=== PATIENT | female | born 1985 | race Caucasian/White ===

== ENCOUNTER 2023-07-30 17:54 | Emergency (ER) | payer OTHER, SELFPAY ==
[2023-07-30 18:00] VITALS: BP 129/76
--- NOTE | 2023-07-30 18:52 | ED.GENMED ---
History of Present Illness
General
Chief Complaint: Urinary Symptoms
Source: patient
Exam Limitations: none
Time Seen by Provider: 07/30/23 18:40
Travel History
Have you had any contact with someone who has COVID-19?: No
Do you have any symptoms of coronavirus? Fever > 100 degrees, chills, cough, shortness of breath, sore throat, loss of taste or smell, muscle aches, or headache?: No
History of Present Illness
History of Present Illness:
This is a 38 year old female that comes in with c/o suprapubic discomfort. States that she urinates but feels that she is not emptying her bladder. States that this started today. States that she did have diarrhea once today and a headache. Denies
any fever, chills, chest pain, SOB, nausea, vomiting, dizziness, urinary burning.
Past History
Past History
ED Past Medical History: Fibromyalgia, GERD, Psychiatric (bipolar, anxiety, Panic attacks, ADHD, OCD) and Other (DAVIS, back pain, UTI, Migraines, palpitations, Lyme disease, Diverticulosis)
ED Past Surgical History: Cholecystectomy (2013), Gynecological (IUD) and Other (wisdom teeth extraction)
Social History
Tobacco: Former smoker
Alcohol: None
Drug: Former user
Personal:
Living: with family
Employment: Not employed
Family History
Family History: Other (Noncontributory)
Review of Systems
Review of Systems
All Other Systems: ROS reviewed and negative except as documented in HPI and ROS
Constitutional: Reports no symptoms; Denies fever or chills
EENT: Reports no symptoms
Respiratory: Reports no symptoms; Denies cough or trouble breathing
Cardiac: Reports no symptoms; Denies chest pain
ABD/GI: Reports abdominal pain (Lower abd pain) and diarrhea; Denies nausea or vomiting
: Reports other (Feels she is not emptying her bladder); Denies dysuria, frequency or urgency
Musculoskeletal: Reports no symptoms
Skin: Reports no symptoms
Neurological: Reports headache; Denies dizzy
Psychiatric: Reports no symptoms
Phy Exam
General Physical Exam
General Presentation: well appearing and no apparent distress
General age: appears stated age
General Skin: warm and dry
General Habitus: normal
General Mental: alert
General Hydration: appears well hydrated
ENT Exam
ENT Exam: TM's normal, pharynx normal and neck supple
Eye Exam
Eye Exam: EOMI
Cardiovascular Exam
Cardiovascular Exam: regular rate/rhythm, no edema, no murmur and normal peripheral pulses
Pulmonary Exam
Pulmonary Exam: lungs clear, no respiratory distress, no rales, chest non tender, no crackles, no rhonchi, no wheezing and no cough
Gastrointestinal Exam
Gastrointestinal Exam: normal bowel sounds, non tender, soft, no organomegaly, no pulsatile mass, non distended and other (obese)
Musculoskeletal Exam
Musculoskeletal Exam: full ROM and no edema
Skin Exam
Skin Exam: normal color, warm/dry, no rash and no petechia
Psychiatric Exam
Psychiatric Exam: normal mood/affect
Course
Orders/Labs/Results
Orders:
Orders
07/30/23 18:52
Bladder Scan- Treatment ONCE
07/30/23 19:00
Urinalysis Reflex To Culture Urgent
Date Specimen was Collected: 07/30/23
Time Specimen was Collected: 18:56
Urine Microscopic Reflex Cult Urgent
Urine Culture Urgent
VITOR Source: U
Specimen Description:
Date Specimen was Collected: 07/30/23
Time Specimen was Collected: 18:56
Abnormal Lab Results
07/30/23
19:00
Leukocyte Esterase Rfl Trace A
(Negative)
Urine Bacteria (Reflex) Many A
(Negative)
Urine Negative for infection. Culture is pending.
Vital Signs
Initial and Last Documented VS:
Initial Vital Signs
Temp Pulse Resp BP Pulse Ox
98.3 F 82 16 129/76 98
07/30/23 18:00 07/30/23 18:00 07/30/23 18:00 07/30/23 18:00 07/30/23 18:00
Last Documented Vital Signs
Temp Pulse Resp BP Pulse Ox
98.3 F 82 16 129/76 98
07/30/23 18:00 07/30/23 18:00 07/30/23 18:00 07/30/23 18:00 07/30/23 18:00
MDM/Problems Addressed
Differential Diagnosis Includes:
UTI, Urinary retention
MDM/Problems Addressed:
This is a 38 year old female that comes in with c/o feeling like she is not emptying her bladder. States that she has lower suprapubic pain and that this started today.
Will check urine and bladder scan after urination.
Back into see patient. Explained that her urine is negative for infection and she is not retaining a significant amount. Patient can follow up with the Urologist for further evaluation. Patient to return with any concerns.
Chronic conditions affecting care:
UTI
Chronic conditions affecting care: Psychiatric illness
Acute Exacerbation and/or Progression of Chronic Illness:
UTI
Acute Exacerbation and/or Progression of Chronic Illness: Psychiatric illness
*Pulse Oximetry
Patient hypoxic: no
*EKG
Interpreted by ED Provider?: NA
Rate: EKG- N/A
*Executive Vp Interpretation
Rate: Executive Vp- N/A
*Critical Care Note
Total Time (30-74mins, 75-104mins- exclusive of procedures): Not Applicable
ED Attending Note
-
Portions of this chart may have been created with voice recognition software.� Occasional wrong word or��sound alike� substitutions may have occurred due to the inherent limitations of voice recognition software.
Discharge Plan
Departure
Patient Disposition: Home (Routine Discharge)
Date of Disposition: 07/30/23
Time of Disposition: 20:05
Patient with high blood pressure during this ER visit?: No
Condition: Good
Covid-19: Not Applicable
Discharge Problem:
Urinary problem
Prescriptions:
No Action
clonidine HCl 0.1 MG tablet
0.1 mg PO BID
lamotrigine [Lamictal] 200 MG tablet
200 mg PO BID
risperidone [Risperdal] 4 MG tablet
4 mg PO HS
divalproex 500 MG tablet extended release 24 hr
500 mg PO BID
docusate sodium 100 MG capsule
100 mg PO BID
risperidone 1 MG tablet
1 mg PO DAILY
omeprazole 20 MG capsule,delayed release(DR/EC)
20 mg PO DAILY Qty: 30 0RF
hydrocortisone acetate 25 MG suppository
25 mg [place] HS Qty: 7 0RF
Activity Restrictions/Additional Instructions:
As discussed, your urine is negative for infection. There is a culture pending and if this would come back positive for infection you will be called and started on an antibiotic. You have some urine still left in the bladder but not a lot. This can
be further evaluated by the Urologist. Please increase your water intake to 8-8oz glasses daily. IF YOU HAVE ANY OTHER CONCERNS PLEASE RETURN TO THE EMERGENCY ROOM.
Interventions
Interventions:
*Risk Screen - Suicide Last Done: 07/30/23 18:01
*General Assessment Last Done: 07/30/23 18:00
*Neglect/Abuse Screening Last Done: 07/30/23 18:00
ED- Fall Risk Assessment Last Done: 07/30/23 19:51
*ED COVID-19 Vaccine History Last Done: 07/30/23 19:51
*Nursing Disposition Last Done: 07/30/23 20:47
ED-Female Genitourinary Assessment Last Done: 07/30/23 19:51
Discharge Date and Time
Discharge Date/Time: 07/30/23 20:47
Print Language: MOHAWK
[2023-07-30 19:26] LABS: Urine Albumin Negative (Neg - Trace); Urine Bilirubin Negative (Negative); Urine Character Clear (Clear); Urine Color Yellow; Urine Glucose Negative (Negative); Urine Ketone Negative (Negative); Urine Leukocyte Trace (Negative); Urine Nitrite Negative (Negative); Urine Occult Blood Negative (Negative); Urine Specific Gravity 1.015 (<1.030); Urine Urobilinogen Negative (Neg - 1+)
[2023-07-30 19:33] LABS: Urine Squamous Cell 16-20 /LPF (Few)
[2023-07-30 19:34] LABS: Urine Bacteria Many (Negative); Urine Mucus Few; Urine Red Blood Cell 0-2 /HPF (0-2); Urine White Cell 0-2 /HPF (0-5)
== END 2023-07-30 20:47 | disposition home or self-care (01) ==
LOC: EMR 17:54
PROVIDERS: Clinical Nurse Specialist Family Health; EMERGENCY PHYSICIAN Emergency Medicine; FAMILY PHYSICIAN Family Medicine
DX: R39.14 Feeling of incomplete bladder emptying (principal); R10.2 Pelvic and perineal pain; R19.7 Diarrhea, unspecified; R51.9 Headache, unspecified
CPT/HCPCS: 99283; 51798; 81003; 81015; 87086

== ENCOUNTER 2023-09-29 14:15 | Emergency (ER) | payer OTHER, SELFPAY ==
[2023-09-29 14:24] VITALS: BP 137/93
[2023-09-29 14:39] VITALS: BMI 50.2
[2023-09-29 14:57] LABS: % Basophils 0.5 % (0-2); % Eosinophils 2.9 % (0-6); % Immature Granulocytes 0.7 % (0-0.5); % Lymphocytes 29.2 % (20.5-51.1); % Monocytes 8.5 % (1.7-9.3); % Neutrophils 58.2 % (42.2-75.2); Absolute Basophils 0.1 10^3/uL (0-0.2); Absolute Eosinophils 0.3 10^3/uL (0-0.7); Absolute Immature Granulocytes 0.1 10^3/uL (0-0.05); Absolute Lymphocytes 3.1 10^3/uL (1.2-3.4); Absolute Monocytes 0.9 10^3/uL (0.1-0.6); Absolute Neutrophils 6.1 10^3/uL (1.4-6.5); Hematocrit 37.4 % (37.0-47.0); Hemoglobin 12.9 g/dL (12.0-16.0); Mean Corp Hgb Conc. 34.5 g/dL (33.0-37.0); Mean Platelet Volume 9.4 fL (7.4-10.4); Nucleated Red Blood Cells % 0 %; Platelet Count 284 10^3/uL (130-400); Red Cell Dist. Width 12.3 % (11.5-14.5); White Blood Cell Count 10.5 10^3/uL (4.8-10.8)
--- NOTE | 2023-09-29 15:08 | ED.GENMED ---
History of Present Illness
General
Chief Complaint: Abdominal Pain
Source: patient, records and spouse
Exam Limitations: none
Time Seen by Provider: 09/29/23 14:56
Nursing documentation reviewed up to this point in time: agreed with
Travel History
Have you had any contact with someone who has COVID-19?: No
Do you have any symptoms of coronavirus? Fever > 100 degrees, chills, cough, shortness of breath, sore throat, loss of taste or smell, muscle aches, or headache?: No
History of Present Illness
History of Present Illness:
Patient is a 38-year-old female presents to the emergency department complaining of pain behind her umbilicus that started at 11:00 last night. Patient took some Tylenol and it helped. Patient states she has a history of diverticular disease.
Patient's had a cholecystectomy. Patient feels nauseous without vomiting or diarrhea. Patient denies any symptoms. Patient's last period was 1 month ago. Patient states the pain got worse with eating. Patient denies any chest pain or
shortness of breath. Patient denies any fever or chills.
Past History
Past History
ED Past Medical History: Fibromyalgia, GERD, Psychiatric (bipolar, anxiety, Panic attacks, ADHD, OCD) and Other (DAVIS, back pain, UTI, Migraines, palpitations, Lyme disease, Diverticulosis)
ED Past Surgical History: Cholecystectomy (2013), Gynecological (IUD) and Other (wisdom teeth extraction)
Social History
Tobacco: Former smoker
Alcohol: None
Drug: Former user
Personal:
Living: with family
Employment: Not employed
Family History
Family History: Other (Noncontributory)
Review of Systems
Review of Systems
All Other Systems: ROS reviewed and negative except as documented in HPI and ROS
Constitutional: Reports no symptoms
EENT: Reports no symptoms
Respiratory: Reports no symptoms
Cardiac: Reports no symptoms
ABD/GI: Reports abdominal pain and nausea; Denies vomiting, diarrhea, constipated, bloody stools, black stools or anorexia
: Reports no symptoms
Musculoskeletal: Reports no symptoms
Skin: Reports no symptoms
Neurological: Reports no symptoms
Hematologic/Lymphatic: Reports no symptoms
Psychiatric: Reports no symptoms
Phy Exam
Physical Exam
Physical Exam:
Physical Exam
General: No apparent distress, alert and appropriate, obese, well hydrated
HENT: Normocephalic, supple with no lymphadenopathy, no thyromegaly
Eyes: Clear sclera, conjuctiva without injection
Heart: Regular rhythm and rate. No S3, S4. No murmur.
Lungs: No respiratory distress, no stridor, lung sounds clear and equal bilaterally
Abdomen: Soft, mild periumbilical tenderness without guarding or rebound, no organomegaly, no CVA tenderness, BS good
Neuro: Alert and oriented x 3, CN II - XII intact, no motor focality, no cerebellar dysfunction
Skin: no rash
Psychiatric: well kept. interactive and cooperative
Extremities: No edema, cyanosis, tenderness
Course
Orders/Labs/Results
Orders:
Orders
09/29/23 14:48
Complete Blood Count/With Diff Urgent
Comprehensive Metabolic Panel Urgent
HCG, Serum Qualitative Screen Urgent
Lipase Urgent
09/29/23 14:55
Add On- LAB Urgent
Tests Added?: HCG Qualitative
09/29/23 15:07
Add On- LAB Urgent
Tests Added?: serum qualitative hcg
Ondansetron Injectable [Zofran] 4 mg IV NOW STA
09/29/23 15:09
Pantoprazole [Protonix IV] 80 mg IV NOW STA
Sucralfate [Carafate] 1 gram PO NOW STA
09/29/23 15:26
Urinalysis Reflex To Culture Urgent
Date Specimen was Collected: 09/29/23
Time Specimen was Collected: 15:25
Urine Microscopic Reflex Cult Urgent
Urine Culture Urgent
VITOR Source: U
Specimen Description:
Date Specimen was Collected: 09/29/23
Time Specimen was Collected: 15:25
09/29/23 16:29
CT Abd/Pel (IV only)-DH only Urgent
Comment:
Reason For Exam: periumbilical tender
Abnormal Lab Results
09/29/23 09/29/23
14:48 15:26
Abs Immat Gran (auto) 0.1 H 10^3/uL
(0-0.05)
Absolute Monos (auto) 0.9 H 10^3/uL
(0.1-0.6)
Immature Gran % 0.7 H %
(0-0.5)
Glucose 115 H mg/dl
(70-99)
Total Protein 6.0 L g/dl
(6.3-8.2)
Urine Ketones Trace A
(Negative)
Leukocyte Esterase Rfl 1+ A
(Negative)
Urine Bacteria (Reflex) Moderate A
(Negative)
09/29/23 14:48
09/29/23 14:48
Vital Signs
Initial and Last Documented VS:
Initial Vital Signs
Temp Pulse Resp BP Pulse Ox
98.1 F 88 18 137/93 98
09/29/23 14:24 09/29/23 14:24 09/29/23 14:24 09/29/23 14:24 09/29/23 14:24
Last Documented Vital Signs
Temp Pulse Resp BP Pulse Ox
98.1 F 88 18 137/93 98
09/29/23 14:24 09/29/23 14:24 09/29/23 14:24 09/29/23 14:24 09/29/23 14:24
*Radiology
Radiology exam reviewed: radiology read reviewed (Unremarkable)
*Pulse Oximetry
Patient hypoxic: no
*EKG
Interpreted by ED Provider?: NA
*Site Reliability Engineer Interpretation
Rate: Site Reliability Engineer- N/A
*Critical Care Note
Total Time (30-74mins, 75-104mins- exclusive of procedures): Not Applicable
Update Note
Update Note:
Patient's symptoms seem to come with eating or more nausea and pain related. Will treat the patient for possible gastritis. Patient be discharged.
ED Attending Note
-
Portions of this chart may have been created with voice recognition software.� Occasional wrong word or��sound alike� substitutions may have occurred due to the inherent limitations of voice recognition software.
Discharge Plan
Departure
Patient Disposition: Home (Routine Discharge)
Date of Disposition: 09/29/23
Time of Disposition: 18:50
Patient with high blood pressure during this ER visit?: No
Condition: Good
Covid-19: Not Applicable
Discharge Problem:
Acute gastritis without hemorrhage, Nonspecific abdominal pain
Instructions: Gastritis (DC), Abdominal Pain
Prescriptions:
New
sucralfate [Carafate] 1 gram tablet
1 g PO QID Qty: 60 0RF
ondansetron 8 mg tablet,disintegrating
8 mg PO TID PRN (Reason: nausea and vomiting) Qty: 30 0RF
pantoprazole [Protonix] 40 mg tablet,delayed release (DR/EC)
40 mg PO BID Qty: 30 0RF
No Action
clonidine HCl 0.1 MG tablet
0.1 mg PO BID
lamotrigine [Lamictal] 200 MG tablet
200 mg PO BID
risperidone [Risperdal] 4 MG tablet
4 mg PO HS
divalproex 500 MG tablet extended release 24 hr
500 mg PO BID
docusate sodium 100 MG capsule
100 mg PO BID
risperidone 1 MG tablet
1 mg PO DAILY
omeprazole 20 MG capsule,delayed release(DR/EC)
20 mg PO DAILY Qty: 30 0RF
hydrocortisone acetate 25 MG suppository
25 mg [place] HS Qty: 7 0RF
Referrals:
Lyla Chavarria MD [Family Provider] - Follow up in 2-3 days
Interventions
Interventions:
*Risk Screen - Suicide Last Done: 09/29/23 14:39
*General Assessment Last Done: 09/29/23 14:40
*Neglect/Abuse Screening Last Done: 09/29/23 14:39
ED- Fall Risk Assessment Last Done: 09/29/23 14:39
*ED COVID-19 Vaccine History Last Done: 09/29/23 14:39
QM-Yrauxi-Ngcveojrhw Assessment Last Done: 09/29/23 14:40
Discharge Date and Time
Print Language: SENEGALESE
[2023-09-29 15:13] LABS: ALT (SGPT) 20 U/L (0-35); AST (SGOT) 19 U/L (14-36); Albumin 3.7 g/dl (3.5-5.0); Alkaline Phosphatase 79 U/L (38-126); Blood Urea Nitrogen 14 mg/dl (7-17); Calcium 9.5 mg/dl (8.4-10.2); Carbon Dioxide 28 mmol/L (22-30); Chloride 105 mmol/L (98-107); Estimated Creatinine Clearance > 125 ml/min; Glucose 115 mg/dl (70-99); Lipase 116 U/L (23-300); Potassium 3.8 mmol/L (3.5-5.1); Sodium 141 mmol/L (135-145); Total Bilirubin 0.3 mg/dl (0.2-1.3); eGFR > 60.00
[2023-09-29] MEDS: CARAFATE 1 GRAM PO (15:18)
[2023-09-29] MEDS: PROTONIX IV 80 MG IV (15:19)
[2023-09-29] MEDS: ZOFRAN 4 MG IV (15:19)
[2023-09-29 15:32] LABS: Urine Albumin Negative (Neg - Trace); Urine Bilirubin Negative (Negative); Urine Character Clear (Clear); Urine Color Yellow; Urine Glucose Negative (Negative); Urine Ketone Trace (Negative); Urine Leukocyte 1+ (Negative); Urine Nitrite Negative (Negative); Urine Occult Blood Negative (Negative); Urine Urobilinogen Negative (Neg - 1+); Urine pH 6.5 (5.0-9.0)
[2023-09-29 15:42] LABS: Urine Bacteria Moderate (Negative); Urine Red Blood Cell 0-2 /HPF (0-2); Urine Squamous Cell >30 /LPF (Few)
[2023-09-29 16:05] LABS: HCG, Serum Qualitative Screen Negative
[2023-09-29 19:15] VITALS: BP 117/75
== END 2023-09-29 19:17 | disposition home or self-care (01) ==
LOC: EMR 14:15
PROVIDERS: EMERGENCY PHYSICIAN Emergency Medicine; FAMILY PHYSICIAN Internal Medicine
DX: K29.00 Acute gastritis without bleeding (principal); F31.9 Bipolar disorder, unspecified; F42.9 Obsessive-compulsive disorder, unspecified; K21.9 Gastro-esophageal reflux disease without esophagitis; M79.7 Fibromyalgia; Q43.8 Other specified congenital malformations of intestine; Z87.440 Personal history of urinary (tract) infections; Z87.891 Personal history of nicotine dependence; Z90.49 Acquired absence of other specified parts of digestive tract
CPT/HCPCS: 99284; 96374; 96375; 74177; 80053; 81003; 81015; 83690; 84703; 85025; 87086; Q9967

== ENCOUNTER 2024-05-26 15:26 | Emergency (ER) | payer OTHER, SELFPAY ==
[2024-05-26 15:32] VITALS: BP 135/109
--- NOTE | 2024-05-26 17:15 | ED.GENMED ---
History of Present Illness
General
Chief Complaint: Dental Problem
Source: patient
Exam Limitations: none
Time Seen by Provider: 05/26/24 17:04
History of Present Illness
History of Present Illness:
39-year-old female with history of bipolar disorder presents complaining of right-sided dental pain that radiates to her ear. Constant pain. She spoke with a dentist on the phone they cannot get her until tomorrow but they advised she come here to
have her ear looked at. No fevers no cough. No vomiting. No other complaints at this time
Past History
Past History
ED Past Medical History: Fibromyalgia, GERD, Psychiatric (bipolar, anxiety, Panic attacks, ADHD, OCD) and Other (DAVIS, back pain, UTI, Migraines, palpitations, Lyme disease, Diverticulosis)
ED Past Surgical History: Cholecystectomy (2013), Gynecological (IUD) and Other (wisdom teeth extraction)
Social History
Tobacco: Former smoker
Alcohol: None
Drug: Former user
Personal:
Living: with family
Employment: Not employed
Family History
Family History: Other (Noncontributory)
Phy Exam
Physical Exam
Physical Exam:
General: Well-appearing female no acute respiratory distress
HEENT: Normocephalic TMs normal mucosa moist neck is supple no trismus or drooling TMJs nontender slightly tender to the right upper teeth. Posterior pharynx is patent without any swelling or asymmetry
Extremities: No cyanosis
Course
Vital Signs
Initial and Last Documented VS:
Initial Vital Signs
Temp Pulse Resp BP Pulse Ox
98.1 F 93 20 135/109 97
05/26/24 15:32 05/26/24 15:32 05/26/24 15:32 05/26/24 15:32 05/26/24 15:32
Last Documented Vital Signs
Temp Pulse Resp BP Pulse Ox
98.1 F 93 16 135/109 97
05/26/24 15:32 05/26/24 15:32 05/26/24 16:47 05/26/24 15:32 05/26/24 15:32
MDM/Problems Addressed
Differential Diagnosis Includes:
Right sided dental pain. No signs of otitis. Question possible underlying infection versus cavity. Will cover with antibiotics. She is due to see the dentist tomorrow. No abscess to drain. No rash to suggest shingles
*Critical Care Note
Total Time (30-74mins, 75-104mins- exclusive of procedures): Not Applicable
ED Attending Note
-
Portions of this chart may have been created with voice recognition software.� Occasional wrong word or��sound alike� substitutions may have occurred due to the inherent limitations of voice recognition software.
Discharge Plan
Departure
Patient Disposition: Home (Routine Discharge)
Date of Disposition: 05/26/24
Time of Disposition: 17:16
Patient with high blood pressure during this ER visit?: No
Discharge Problem:
Pain, dental
Instructions: Dental Pain (DC)
Prescriptions:
New
clindamycin HCl 300 mg capsule
300 mg PO TID Qty: 21 0RF
No Action
clonidine HCl 0.1 MG tablet
0.1 mg PO BID
lamotrigine [Lamictal] 200 MG tablet
200 mg PO BID
risperidone [Risperdal] 4 MG tablet
4 mg PO HS
divalproex 500 MG tablet extended release 24 hr
500 mg PO BID
docusate sodium 100 MG capsule
100 mg PO BID
risperidone 1 MG tablet
1 mg PO DAILY
omeprazole 20 MG capsule,delayed release(DR/EC)
20 mg PO DAILY Qty: 30 0RF
hydrocortisone acetate 25 MG suppository
25 mg [place] HS Qty: 7 0RF
sucralfate [Carafate] 1 gram tablet
1 g PO QID Qty: 60 0RF
ondansetron 8 mg tablet,disintegrating
8 mg PO TID PRN (Reason: nausea and vomiting) Qty: 30 0RF
pantoprazole [Protonix] 40 mg tablet,delayed release (DR/EC)
40 mg PO BID Qty: 30 0RF
Activity Restrictions/Additional Instructions:
Take antibiotics as directed. Use Tylenol for pain. Follow-up with your dentist
Interventions
Interventions:
*Risk Screen - Suicide Last Done: 05/26/24 16:46
*General Assessment Last Done: 05/26/24 15:32
*Neglect/Abuse Screening Last Done: 05/26/24 16:46
ED- Fall Risk Assessment Last Done: 05/26/24 16:47
Discharge Date and Time
Print Language: ESTONIAN
== END 2024-05-26 17:29 | disposition home or self-care (01) ==
LOC: EMR 15:26
PROVIDERS: EMERGENCY PHYSICIAN Student in an Organized Health Care Education/Training Program; FAMILY PHYSICIAN Nurse Practitioner Family
DX: K08.89 Other specified disorders of teeth and supporting structures (principal); K21.9 Gastro-esophageal reflux disease without esophagitis; M79.7 Fibromyalgia; Z87.891 Personal history of nicotine dependence; Z90.49 Acquired absence of other specified parts of digestive tract
CPT/HCPCS: 99282

== ENCOUNTER 2024-10-30 21:10 | Emergency (ER) | payer OTHER, SELFPAY ==
[2024-10-30 21:12] VITALS: BP 154/117
--- NOTE | 2024-10-30 22:37 | ED.GENMED ---
History of Present Illness
General
Chief Complaint: Dental Problem
Source: patient and previous hospital records (ED visit May 2024 with complaints of right upper molar pain.)
Exam Limitations: none
Time Seen by Provider: 10/30/24 22:07
Nursing documentation reviewed up to this point in time: agreed with
History of Present Illness
History of Present Illness:
This is a 39-year-old obese woman with history of bipolar disorder, fibromyalgia, fatty liver disease who presents with 3-day history of right upper molar pain, slowly progressive over the past 2 to 3 days with development of swelling of the right
upper hard palate just adjacent to her right upper molars. She has not had a fever, no sore throat nor difficulty swallowing, no headache, no ear pain.
She had similar right upper molar dental pain noted during ED visit May 2024. At that time no focal swelling. Was placed on a course of clindamycin and patient followed up with the dentist and had a cavity repaired.
She states she follows regularly with dentist and undergoes dental cleaning every 3 months with last visit perhaps a month ago.
She has been taking Tylenol for pain, last dose was this afternoon as well as 1 dose of Tylenol yesterday.
Reports allergy to penicillin.
Denies risk of .
Past History
Past History
ED Past Medical History: Fibromyalgia, GERD, Psychiatric (bipolar, anxiety, Panic attacks, ADHD, OCD) and Other (DAVIS, back pain, UTI, Migraines, palpitations, Lyme disease, Diverticulosis)
ED Past Surgical History: Cholecystectomy (2013), Gynecological (IUD) and Other (wisdom teeth extraction)
Social History
Tobacco: Former smoker
Alcohol: None
Drug: Former user
Personal:
Living: with family
Employment: Not employed
Family History
Family History: Other (Noncontributory)
Phy Exam
Physical Exam
Physical Exam:
GENERAL: 39-year-old obese female appears her stated age, bright and alert, pleasant, easily communicative and in no acute distress. Borderline low-grade fever 99 �F noted.
EYE: pupils equal and reactive. anicteric
NECK: Supple, nontender, no meningismus, no significant adenopathy.
ENT: posterior pharynx is clear, oral mucosa is moist. TM clear b/l, nares patent. There is a soft fluctuant dental abscess located medial to right upper molar�tooth #3. Moderate local tenderness to palpation. Abscess is localized without
surrounding erythema. Mild tenderness to tooth #3. No overt dental carry. No evidence of gingivitis.
CARDIAC: Regular rate and rhythm. no murmur.
LUNGS: Clear breath sounds bilaterally, no acute respiratory distress, no wheezes/rales/rhonchi
ABDOMEN: Rotund, soft, nondistended, without focal tenderness
NEUROLOGICAL: Alert and oriented x3, no focal neuro deficits. Gait is lloyd and steady.
SKIN: Warm and dry, normal color, skin intact. No rash.
MUSCULOSKELETAL: No C/C/E. peripheral pulses are full and equal b/l. No palpable tenderness.
PSYCH: Normal and appropriate interaction.
Course
Orders/Labs/Results
Orders:
Orders
10/30/24 22:35
Clindamycin HCl [Cleocin] 300 mg PO NOW STA
Ibuprofen [Motrin] 600 mg PO NOW STA
Vital Signs
Initial and Last Documented VS:
Initial Vital Signs
Temp Pulse Resp BP Pulse Ox
98.8 F 98 16 154/117 96
10/30/24 21:12 10/30/24 21:12 10/30/24 21:12 10/30/24 21:12 10/30/24 21:12
Last Documented Vital Signs
Temp Pulse Resp BP Pulse Ox
98.8 F 98 16 154/117 96
10/30/24 21:12 10/30/24 21:12 10/30/24 21:12 10/30/24 21:12 10/30/24 22:42
Procedures
Incision/Drainage/Joint Aspiration
Medial aspect of tooth #3:
Anethesia: other (Topical [id number])
Preparation: other (Cleaned with normal saline)
Type of procedure: incise (#11 Blade utilized.)
Nature of site: abscess
Description of abscess: less than 3cm
How much fluid was obtained?: large amount (Moderate amount of purulent material expressed from dental abscess.)
Fluid description: purulent
Treatment: left open for drainage
Additional information:
Small incision and dental abscess with #11 blade. Abscess expressed with gentle pressure with suction catheter. Moderate amount of purulent material mixed with scant amount of blood.
Patient tolerated procedure well. No complications.
MDM/Problems Addressed
Differential Diagnosis Includes:
Several day history of right upper molar pain presents with focal dental abscess medial aspect of tooth #3. This abscess is fluctuant, amenable to I&D.
Will anesthetize locally with topical benzocaine and plan for focal incision and drainage.
Will initiate a course of clindamycin and will give ibuprofen for pain.
Overall well in appearance. No history of immunocompromise nor risk factors for such. No indication for laboratory studies nor imaging.
*Pulse Oximetry
SaO2: 96
Oxygen Mode of Delivery: Room air
Patient hypoxic: no
*Critical Care Note
Total Time (30-74mins, 75-104mins- exclusive of procedures): Not Applicable
Update Note
Update Note:
Dental abscess incised and drained.
Patient tolerated procedure well. No complications.
Will initiate clindamycin as above.
Recommend soft diet.
Warm salt water gargles.
Tylenol versus ibuprofen as needed for pain.
Prompt follow-up with dentist for recheck.
ED Attending Note
-
Portions of this chart may have been created with voice recognition software.� Occasional wrong word or��sound alike� substitutions may have occurred due to the inherent limitations of voice recognition software.
Discharge Plan
Departure
Patient Disposition: Home (Routine Discharge)
Date of Disposition: 10/30/24
Time of Disposition: 23:08
Patient with high blood pressure during this ER visit?: Yes
Condition: Good
Discharge Problem:
Abscess, dental
Instructions: Tooth Abscess (DC), BLOOD PRESSURE
Prescriptions:
New
clindamycin HCl [Cleocin HCl] 300 mg capsule
300 mg PO TID Qty: 20 0RF
No Action
clonidine HCl 0.1 MG tablet
0.1 mg PO BID
lamotrigine [Lamictal] 200 MG tablet
200 mg PO BID
risperidone [Risperdal] 4 MG tablet
4 mg PO HS
divalproex 500 MG tablet extended release 24 hr
500 mg PO BID
docusate sodium 100 MG capsule
100 mg PO BID
risperidone 1 MG tablet
1 mg PO DAILY
omeprazole 20 MG capsule,delayed release(DR/EC)
20 mg PO DAILY Qty: 30 0RF
hydrocortisone acetate 25 MG suppository
25 mg FL HS Qty: 7 0RF
sucralfate [Carafate] 1 gram tablet
1 g PO QID Qty: 60 0RF
ondansetron 8 mg tablet,disintegrating
8 mg PO TID PRN (Reason: nausea and vomiting) Qty: 30 0RF
pantoprazole [Protonix] 40 mg tablet,delayed release (DR/EC)
40 mg PO BID Qty: 30 0RF
clindamycin HCl 300 mg capsule
300 mg PO TID Qty: 21 0RF
Referrals:
UNKNOWN - PT DOES,NOT KNOW [Family Provider]
Activity Restrictions/Additional Instructions:
Call your dentist on Friday for prompt follow-up.
Continue Tylenol 2 tablets 3-4 times daily as needed for pain.
Limit your diet to soft foods, clear liquids for comfort.
Warm salt water gargles 4 times daily can help with pain, healing as well.
Interventions
Interventions:
*Risk Screen - Suicide Last Done: 10/30/24 21:12
*General Assessment Last Done: 10/30/24 22:23
*Neglect/Abuse Screening Last Done: 10/30/24 22:22
*ED- Fall Risk Assessment Last Done: 10/30/24 22:22
Discharge Date and Time
Print Language: MONEGASQUE
[2024-10-30] MEDS: CLEOCIN 300 MG PO (23:19)
[2024-10-30] MEDS: MOTRIN 600 MG PO (23:20)
== END 2024-10-30 23:54 | disposition home or self-care (01) ==
LOC: EMR 21:10
PROVIDERS: EMERGENCY PHYSICIAN Emergency Medicine
DX: K04.7 Periapical abscess without sinus (principal); R03.0 Elevated blood-pressure reading, without diagnosis of hypertension; E66.9 Obesity, unspecified; M79.7 Fibromyalgia; F31.9 Bipolar disorder, unspecified; F41.9 Anxiety disorder, unspecified; F90.9 Attention-deficit hyperactivity disorder, unspecified type; F41.0 Panic disorder [episodic paroxysmal anxiety]; F42.9 Obsessive-compulsive disorder, unspecified; G43.909 Migraine, unspecified, not intractable, without status migrainosus; K76.0 Fatty (change of) liver, not elsewhere classified; K57.90 Diverticulosis of intestine, part unspecified, without perforation or abscess without bleeding; Z97.5 Presence of (intrauterine) contraceptive device; Z87.891 Personal history of nicotine dependence; Z87.440 Personal history of urinary (tract) infections; Z90.49 Acquired absence of other specified parts of digestive tract; Z88.0 Allergy status to penicillin; Z91.048 Other nonmedicinal substance allergy status
CPT/HCPCS: 99283; 10060